=== PATIENT | male | born 1945 | race Caucasian/White ===

== ENCOUNTER 2016-11-22 08:56 | Emergency (ER) | payer MEDICARE, MEDICAID ==
[~2016-11-22] VITALS: Ht 165.1 cm; Wt 80.9 kg
[2016-11-22 11:28] LABS: BLOOD UREA NITROGEN 17 mg/dL (7-18)
[2016-11-22 11:32] LABS: ASPARTATE AMINO TRANSFERASE 8 U/L (15-37)
[2016-11-22] MEDS ORDERED: MAALOX/HYOSCYAMINE/LIDOCAINE 45 ML BOTTLE ONE (12:27)
[2016-11-22] MEDS ORDERED: MAALOX/HYOSCYAMINE/LIDOCAINE 45 ML BOTTLE PO ONE (12:30)
[2016-11-22 12:58] VITALS: BP 154/73
== END 2016-11-22 13:01 | disposition home or self-care (01) ==
LOC: ED 12:55
DX: K29.00 Acute gastritis without bleeding (principal); Z87.891 Personal history of nicotine dependence
CPT/HCPCS: 36415; 74022; 76700; 80053; 81001; 83690; 84484; 85025; 93005; 99285

== ENCOUNTER 2017-02-01 09:53 | Emergency (ER) | payer MEDICARE, MEDICAID ==
[~2017-02-01] VITALS: Ht 167.6 cm; Wt 79.0 kg
[2017-02-01 10:04] VITALS: BP 186/81
[2017-02-01] MEDS ORDERED: METF500T4 PO (10:20)
[2017-02-01 10:59] LABS: HEMATOCRIT 48.2 % (39.2-51.8); HEMOGLOBIN 16.6 g/dL (13.7-18.0)
[2017-02-01 11:10] LABS: BLOOD UREA NITROGEN 20 mg/dL (7-18)
[2017-02-01 11:13] LABS: ASPARTATE AMINO TRANSFERASE 13 U/L (15-37)
== END 2017-02-01 11:47 | disposition home or self-care (01) ==
LOC: ED 10:12
DX: G44.219 Episodic tension-type headache, not intractable (principal); F17.200 Nicotine dependence, unspecified, uncomplicated
CPT/HCPCS: 36415; 70450; 80053; 85025; 99285

== ENCOUNTER 2018-06-07 00:28 | Emergency (ER) | payer MEDICARE, MEDICAID ==
[~2018-06-07] VITALS: Ht 165.1 cm; Wt 78.5 kg
[~2018-06-07 00:28] MED LIST: METF500T17 PO
[2018-06-07 00:29] VITALS: BP 178/98
[2018-06-07] MEDS ORDERED: KETOROLAC 30 MG/1 ML ONE (01:28)
[2018-06-07] MEDS ORDERED: KETOROLAC 30 MG/1 ML IM ONE (01:30)
== END 2018-06-07 01:38 | disposition home or self-care (01) ==
LOC: ED 00:40
DX: M54.31 Sciatica, right side (principal); E11.9 Type 2 diabetes mellitus without complications
CPT/HCPCS: 96372; 99283; J1885

== ENCOUNTER 2018-06-10 03:46 | Emergency (ER) | payer MEDICARE, MEDICAID ==
[~2018-06-10] VITALS: Ht 165.1 cm; Wt 78.6 kg
[2018-06-10] MEDS ORDERED: KETOROLAC 30 MG/1 ML ONE (05:29)
[2018-06-10] MEDS ORDERED: KETOROLAC 30 MG/1 ML IM ONE (05:30)
[2018-06-10 05:39] VITALS: BP 190/91
== END 2018-06-10 05:41 | disposition home or self-care (01) ==
LOC: ED 04:35
DX: M25.571 Pain in right ankle and joints of right foot (principal); M19.071 Primary osteoarthritis, right ankle and foot; I10 Essential (primary) hypertension; E11.9 Type 2 diabetes mellitus without complications
CPT/HCPCS: 73610; 96372; 99283; J1885